=== PATIENT | female | born 1975 | race Caucasian/White ===

== ENCOUNTER 2018-01-24 11:50 | Emergency (ER) | payer MEDICAID ==
[2018-01-24] MEDS: CEPHALEXIN 500 MG CAP PO (12:54)
[2018-01-24] MEDS: predniSONE 20 MG TAB PO (12:54)
== END 2018-01-24 12:58 | disposition home or self-care (01) ==
LOC: FTE 11:50
DX: S50.862A Insect bite (nonvenomous) of left forearm, initial encounter (principal); W57.XXXA Bitten or stung by nonvenomous insect and other nonvenomous arthropods, initial encounter; Y92.9 Unspecified place or not applicable
CPT/HCPCS: 99284; J7512